=== PATIENT | female | born 1970 | race African-American/Black ===

== ENCOUNTER 2018-10-28 11:04 | Inpatient (IN) ==
[2018-10-28] MEDS ORDERED: ASPIRIN PO ONE (11:09)
[2018-10-28] MEDS ORDERED: LOPRESSOR IV ONE (11:41)
--- NOTE | 2018-10-28 11:41 | Diag Imaging Result Doc PS360 ---
EXAM: CHEST-2 VIEWS - 10/28/2018 HISTORY: cp TECHNIQUE: Chest two views COMPARISON: 05/17/2018 FINDINGS: Heart size appears mildly enlarged by decreased compared to prior. There is mild tortuosity of the thoracic aorta. There is a small left midlung granuloma from old granulomatous disease. Lungs otherwise appear clear. There is no pleural effusion or pneumothorax identified. IMPRESSION: Mild cardiomegaly. No other evidence of acute disease. Electronically signed by Willard Huang 10/28/2018 11:39 AM
[2018-10-28 11:46] LABS: BASO# 0.03 X1000 (0.0-0.2); BASO% 0.4 % (0.0-0.8); EOS# 0.05 X1000 (0.0-0.7); EOS% 0.7 % (0.0-10.0); HEMATOCRIT 39.4 % (37.0-47.0); HEMOGLOBIN 13.2 g/dL (12.0-16.0); IMM GRAN# 0.02 X1000 (0.0-0.04); IMM GRAN% 0.3 % (0.0-0.5); LYMPH# 2.12 X1000 (1.2-3.4); LYMPH% 28.9 % (20.5-51.1); MCH 30.6 PG (27-31); MCHC 33.5 g/dL (33-37); MCV 91.4 FL (81-99); MONO# 0.84 X1000 (0.11-0.59); MONO% 11.4 % (1.7-9.3); MPV 10.5 FL (7.4-10.4); NEUT# 4.28 X1000 (1.4-6.5); NEUT% 58.3 % (42.2-75.2); PLT 248 X1000 (130-400); RBC 4.31 XMIL (4.2-5.4); RDW 13.6 % (11.5-14.5); WBC 7.34 X1000 (4.8-10.8)
[2018-10-28 11:50] LABS: PROTIME 13.7 Seconds (11.0-16.0)
[2018-10-28 11:51] LABS: PTT 30.2 Seconds (22.3-41.8)
[2018-10-28] MEDS ORDERED: CATAPRES PO ONE (11:56)
[2018-10-28 12:00] LABS: CALCIUM 9.2 mg/dL (8.8-10.2); POTASSIUM 3.6 mmol/L (3.5-5.1); TOTAL BILIRUBIN 0.7 mg/dL (0.20-1.00); TOTAL PROTEIN 7.2 g/dL (6.3-8.3)
[2018-10-28 12:46] LABS: CK INDEX 1.8 (0.0-2.5); CK-MB 3.41 ng/mL (0.0-5.0)
--- NOTE | 2018-10-28 12:48 | EKG Report ---
Test Performed on : 10/28/2018 11:13:26 AM Test Reason : cp Blood Pressure : / mmHG Vent. Rate : 091 BPM Atrial Rate : 091 BPM P-R Int : 140 ms QRS Dur : 156 ms QT Int : 406 ms P-R-T Axes : 073 -22 091 degrees QTc Int : 499 ms Normal sinus rhythm. Possible Left atrial enlargement Left bundle branch block Abnormal ECG When compared with ECG of 18-MAY-2018 06:25, Vent. rate has increased BY 34 BPM Left bundle branch block is now present Unconfirmed Result
[2018-10-28] MEDS ORDERED: APRESOLINE IV ONE ×2 (13:07→16:00)
--- NOTE | 2018-10-28 14:12 | PROVIDER DOCUMENTATION ---
This chart was entered by Mounika Jose Scribe, acting as scribe for Trini Vang MD. HPI-Chest Pain - General Chief Complaint: Chest Pain Stated Complaint: CHEST PAIN / SOB Time Seen by Provider: 10/28/18 11:13 Source: patient Allergies/Adverse Reactions: Patient Allergies Allergy/AdvReac Type Severity Reaction Status Date / Time metoprolol Allergy Severe SWELLING Verified 05/17/18 15:58 amlodipine Allergy SWELLING Verified 05/17/18 15:58 lisinopril Allergy SWELLING Verified 05/17/18 15:58 peaches Allergy SWELLING Uncoded 05/20/18 09:03 Home Medications: Home Medication List Medication Instructions Recorded Confirmed Last Taken Type Furosemide [Lasix] 40 mg PO BID 01/14/18 05/17/18 05/17/18 15:58 History Albuterol Sulfate Inhaler 2 puff INH Q6H PRN PRN 05/17/18 05/17/18 Unknown History [Ventolin Hfa] Clonidine [Catapres] 0.2 mg PO TID 05/17/18 05/17/18 05/17/18 History Folic Acid 1 mg PO DAILY 05/17/18 05/17/18 05/17/18 History Spironolactone 25 mg PO DAILY 05/17/18 05/17/18 05/17/18 History Aspirin 325 mg PO DAILY tablet 05/20/18 Unknown Rx Methocarbamol [Robaxin-750] 750 mg PO Q8H #90 tablet 05/21/18 Unknown Rx - History of Present Illness-CP Nature of Presenting Problem: Patient is a 48 year old female who presents to the ED with left side chest pain. Patient states chest pain radiates to left arm and left mid back. Patient states symptoms started 1 hour ago. Patient denies shortness of breath. Patient' s blood pressure was 230/135. Location: reports: other (left side) Chest Pain Radiation: reports: arms (left), back (left side) Quality of Pain: reports: pressure, sharp Severity in ED: mild Onset/Duration: 1 hour ago Timing: still present Context/Activities at Onset: reports: light activity Modifying Factors: improves with: nothing Associated Symptoms: reports: back pain (left side) Similar Symptoms Previously?: No Recently Seen Here or By Another Healthcare Provider: No Review of Systems - Adult - REVIEW OF SYSTEMS - ADULT Constitutional: reports: no symptoms reported Eyes: reports: no symptoms reported Ears, Nose, Mouth & Throat: reports: no symptoms reported Cardiovascular: reports: chest pain. denies: heart murmur, irregular heart rate Respiratory: reports: no symptoms reported Gastrointestinal: reports: no symptoms reported Genitourinary: reports: no symptoms reported Musculoskeletal: reports: no symptoms reported Integumentary: reports: no symptoms reported Neurological: reports: no symptoms reported Psychiatric: reports: no symptoms reported Endocrine: reports: no symptoms reported Hematologic/Lymphatic: reports: no symptoms reported Allergic/Immunologic: reports: no symptoms reported All Other Systems: Reviewed and Negative Past History - Adult - PAST MEDICAL HISTORY-ADULT Review of Records: reports: Nursing Assessment Review, Medications Reviewed, Social history reviewed & non-contributory. Major Childhood Illnesses: reports: denies history Cardiovascular: reports: HTN, hyperlipidemia, other (Enlarged heart) Respiratory: reports: denies history Gastrointestinal: reports: GERD Obstetrical/Gynecological: reports: denies history Genitourinary: reports: denies history Musculoskeletal: reports: denies history Neurological: reports: denies history Psychiatric: reports: denies history Endocrine/Immune: reports: denies history Other Conditions: reports: denies history - PRIOR SURGERIES/PROCEDURES Surgical/Procedure History: reports: - PRIOR HOSPITALIZATIONS Prior Hospitalizations: reports: none - IMMUNIZATION STATUS Childhood Immunizations: See Nurse Assessment Flu Vaccine: See Nurse Assessment - FAMILY HISTORY Family History: reviewed, not pertinent - SOCIAL HISTORY Smoking: cigarettes (former) Substance Use: alcohol Alcohol Use Frequency: occasionally Living Situation: family Physical Exam-General - PHYSICAL EXAM-ADULT Initial Vital Signs Reviewed: Yes - CONSTITUTIONAL General Appearance: alert, no apparent distress - HEAD, EARS, NOSE, MOUTH & THROAT HENMT: normal ENT inspection - RESPIRATORY Respiratory: chest non-tender, lungs clear, normal breath sounds - CARDIOVASCULAR Cardiovascular: normal peripheral pulses, regular rate, rhythm, JVD - GASTROINTESTINAL (ABDOMEN) Abdominal Exam: normal bowel sounds, non tender, soft - MUSCULOSKELETAL Extremity: non-tender, normal inspection - SKIN Integumentary: normal color, normal turgor, warm/dry - NEUROLOGIC Neurologic: grossly normal - PSYCHIATRIC Psych/Mental Status: normal mood/affect, oriented x 3 Progress - PLAN OF CARE/RESULTS Progress/Plan/Lab Results: Vital Signs - 8 hr 10/28/18 11:10 10/28/18 12:06 10/28/18 13:15 Temperature 98.4 F Pulse Rate 90 78 71 Respiratory Rate 18 22 18 Blood Pressure 230/135 216/113 188/85 O2 Sat by Pulse Oximetry 98 99 98 Laboratory Results - last 24 hr 10/28/18 10/28/18 10/28/18 10:15 10:15 10:15 WBC 7.34 RBC 4.31 Hgb 13.2 Hct 39.4 MCV 91.4 MCH 30.6 MCHC 33.5 RDW Std Deviation 13.6 Plt Count 248 MPV 10.5 H Immature Gran % (Auto) 0.3 Neut % (Auto) 58.3 Lymph % (Auto) 28.9 Grant % (Auto) 11.4 H Eos % (Auto) 0.7 Baso % (Auto) 0.4 Immature Gran # (Auto) 0.02 Neut # (Auto) 4.28 Lymph # (Auto) 2.12 Grant # (Auto) 0.84 H Eos # (Auto) 0.05 Baso # (Auto) 0.03 PT INR PTT (Actin FS) Sodium 139 Potassium 3.6 Chloride 104 Carbon Dioxide 21 L Anion Gap 14 BUN 7 L Creatinine 1.0 H Estimated GFR/1.73 m2 59 BUN/Creatinine Ratio 7 Glucose 115 H Calculated Osmolality 276 Calcium 9.2 Total Bilirubin 0.70 AST 22 ALT 22 Alkaline Phosphatase 98 Creatine Kinase 186 H Creatine Kinase Index 1.8 CK-MB (CK-2) 3.41 Troponin T Obt-A-Gdjrmueyjnz Pept 2513 H Total Protein 7.2 Albumin 4.0 Globulin 3.0 Albumin/Globulin Ratio 1.0 10/28/18 10/28/18 10/28/18 10:15 10:15 13:30 WBC RBC Hgb Hct MCV MCH MCHC RDW Std Deviation Plt Count MPV Immature Gran % (Auto) Neut % (Auto) Lymph % (Auto) Grant % (Auto) Eos % (Auto) Baso % (Auto) Immature Gran # (Auto) Neut # (Auto) Lymph # (Auto) Grant # (Auto) Eos # (Auto) Baso # (Auto) PT 13.7 INR 1.00 PTT (Actin FS) 30.2 Sodium Potassium Chloride Carbon Dioxide Anion Gap BUN Creatinine Estimated GFR/1.73 m2 BUN/Creatinine Ratio Glucose Calculated Osmolality Calcium Total Bilirubin AST ALT Alkaline Phosphatase Creatine Kinase 154 Creatine Kinase Index CK-MB (CK-2) Troponin T < 0.010 Cmb-C-Waqsnqngaqv Pept Total Protein Albumin Globulin Albumin/Globulin Ratio 10/28/18 13:30 WBC RBC Hgb Hct MCV MCH MCHC RDW Std Deviation Plt Count MPV Immature Gran % (Auto) Neut % (Auto) Lymph % (Auto) Grant % (Auto) Eos % (Auto) Baso % (Auto) Immature Gran # (Auto) Neut # (Auto) Lymph # (Auto) Grant # (Auto) Eos # (Auto) Baso # (Auto) PT INR PTT (Actin FS) Sodium Potassium Chloride Carbon Dioxide Anion Gap BUN Creatinine Estimated GFR/1.73 m2 BUN/Creatinine Ratio Glucose Calculated Osmolality Calcium Total Bilirubin AST ALT Alkaline Phosphatase Creatine Kinase Creatine Kinase Index CK-MB (CK-2) Troponin T < 0.010 Eim-K-Xpshenxvxtw Pept Total Protein Albumin Globulin Albumin/Globulin Ratio Orders Category Date Time Status Cardiac Monitoring DIRECTED Care 10/28/18 11:09 Active Oxygen Therapy- ED Nursing DIRECTED Care 10/28/18 11:09 Active Saline Loc NOW Care 10/28/18 11:09 Active CHEST-2 VIEWS [RAD] Stat Exams 10/28/18 11:09 Completed CBC WITH ELECTRONIC DIFF [HEME] Stat Lab 10/28/18 10:15 Completed CK PROFILE [SP CHEM] Stat Lab 10/28/18 10:15 Completed CK PROFILE [SP CHEM] Stat Lab 10/28/18 13:30 Completed COMPREHENSIVE METABOLIC PANEL [CHEM] Stat Lab 10/28/18 10:15 Completed PRO B-NATRIURETIC PEPTIDE Stat Lab 10/28/18 10:15 Completed PROTIME WITH INR [COAG] Stat Lab 10/28/18 10:15 Completed PTT [COAG] Stat Lab 10/28/18 10:15 Completed TROPONIN T Stat Lab 10/28/18 10:15 Completed TROPONIN T Stat Lab 10/28/18 13:30 Completed Aspirin Med 10/28/18 11:09 Discontinued 325 mg PO NOW ONE Clonidine [Catapres] Med 10/28/18 11:56 Discontinued 0.2 mg PO NOW ONE Hydralazine [Apresoline] Med 10/28/18 13:07 Discontinued 10 mg IV NOW ONE Metoprolol [Lopressor] Med 10/28/18 11:41 Discontinued 5 mg IV NOW ONE CP/SOB/Palp >45 yrs of Age Stat Oth 10/28/18 11:09 Ordered EKG [EKG] Stat Ther 10/28/18 11:09 Draft EKG [EKG] Stat Ther 10/28/18 13:25 Ordered Patient's heart score is 4. Result Diagrams: 10/28/18 10:15 10/28/18 10:15 - EKG 1 Time of EKG reading by physician:: 11:13 EKG Read and Signed by:: Trini Vang EKG Interpretation (*Must complete 3 of following elements*): Abnormal Rate: 91 Rhythm: normal sinus rhythm Comments: possible left atrial enlargement; LBBB - XRAY 1 XRAY Study: Chest Impression: See EMR Report ( EXAM: CHEST-2 VIEWS - 10/28/2018 HISTORY: cp TECHNIQUE: Chest two views COMPARISON: 05/17/2018 FINDINGS: Heart size appears mildly enlarged by decreased compared to prior. There is mild tortuosity of the thoracic aorta. There is a small left midlung granuloma from old granulomatous disease. Lungs otherwise appear clear. There is no pleural effusion or pneumothorax identified. IMPRESSION: Mild cardiomegaly. No other evidence of acute disease. Electronically signed by Willard Huang 2018 11:39 AM 10/28/18 1139 Interpreting Physician: Willard Huang MD Dictated Date/Time: 10/28/18 1135 cc: Trini Vang MD;) - CONSULTS/PCP/HOSPITALIST Notification #1 *Consult/PCP/Hospitalist*: Dr. Harkins Time Discussed: 13:05 Reason/Comments: Dr. Vang consulted with Dr. Harkins about patient. Consult Disposition: other (Dr. Harkins states patient is a Dr. Solis patient.) #2 Consult: Dr. Solis Time Discussed: 13:12 Reason/Comments: Dr. Vang consulted with Dr. Solis about patient. Consult Disposition: other (Dr. Solis stated consult with Dr. New) Departure - Departure Date of Disposition Decision: 10/28/18 Time of Disposition Decision: 13:05 DIAGNOSIS: Chest pain Disposition: ADMITTED INPATIENT 09 Certified Medical Emergency: Emergent Condition: Stable Referrals and Follow-Ups: Shady Solis MD [Primary Care Provider] - - Critical Care Note This patient required my direct & personal management of CC.: Yes Total Time (mins): 33 Critical Care Statement: This patient required my direct personal management to treat or rule out processes, the absence of which, could potentiallly result in sudden, clinically significant life or limb threatening deterioration. Attestation - Physician/ SABRA Attestation The physician spent face to face time with patient:: Yes Advanced Practice Provider documentation review:: Supervising physician onsite and consulted in the evaluation and care of this patient. The physician did have a face to face encounter with the patient. This chart was documented by the indicated scribe, (Mounika Jose Scribe) and accurately reflects the services I performed and decisions made by me, Trini Vang MD, as attested by the provider's signature.
[2018-10-28] MEDS ORDERED: ZANTAC PO ONE (14:18)
[2018-10-28] MEDS ORDERED: ZYRTEC PO ONE (14:18)
[2018-10-28] MEDS ORDERED: DUONEB (A & A) INH PRN (15:00)
[2018-10-28] MEDS ORDERED: PULMICORT INH ONE (15:24)
[2018-10-28] MEDS ORDERED: SOLU-CORTEF IV ONE (15:35)
[2018-10-28] MEDS: DUONEB (A & A) INH SCH ×3 (15:41→23:26)
[2018-10-28] MEDS ORDERED: STERILE WATER INJ. INJ ONE (15:45)
[2018-10-28] MEDS: LOVENOX SUBQ SCH (16:11)
[2018-10-28] MEDS: NS 1,000 ML IV SCH (16:11)
[2018-10-28] MEDS: SOLU-MEDROL IV SCH (18:42)
[2018-10-28] MEDS: ZANTAC PO SCH (21:36)
[2018-10-28] MEDS: TYLENOL PO PRN (21:36)
--- NOTE | 2018-10-28 23:22 | HISTORY AND PHYSICAL ---
CHIEF COMPLAINT: Sharp left-sided chest pain, with swelling to her right eye and right cheek, along with hoarseness. HISTORY OF PRESENT ILLNESS: This is a 48-year-old female with a history of hypertension, bronchial asthma, anemia, who presents to the emergency room complaining of chest pain. This started about 2 hours prior to arrival. She stated that this is a left-sided chest pain. It feels like a stabbing burning-type pain. It does radiate straight through to her back, into her left arm, as well as swelling to her right eye and cheek, and tearing from her right eye. In the hour or two prior to coming to the emergency room, she stated that the tearing to this eye increased, as well as the swelling, but she has had no change in vision. She does state she has had orthopnea for a year or 2. She has been unable to lie flat. This is her normal, but during the day today, she has had increasing shortness of breath. This continues as her normal. She does report that shortly after this chest pain started, that she did have increasing shortness of breath at rest. She has denied any fevers, chills, any prior episodes, any difficulty swallowing. Of note, her blood pressure was 230/135 in the emergency room. PAST MEDICAL HISTORY: Hypertension, hypertensive cardiovascular disease with LVH and chronic diastolic failure, bronchial asthma. PAST SURGICAL HISTORY: . SOCIAL HISTORY: She smokes about half pack a day. She drinks socially. She denies illicit drug use. ALLERGIES: Lisinopril, amlodipine, metoprolol, and peaches. All cause swelling. HOME MEDICATIONS: A list will be obtained. We will call her pharmacy to verify , and then restart as appropriate. Home medications per [facility]: 1. Chlorthalidone 25 mg p.o. daily. 2. Clonidine 0.2 mg 3 times a day. 3. Lasix 40 mg daily. 4. Spironolactone 50 mg daily. REVIEW OF SYSTEMS: Discussed with patient, with pertinent positives stated in the HPI. She denies any syncope or dizziness, palpitations, any fevers, chills, night sweats , recent weight loss or weight gain, productive cough, any nausea, vomiting, diarrhea, constipation, black or bloody vomitus or stools, hematuria, dysuria, frequency, urgency. PHYSICAL EXAMINATION: GENERAL: This is a 48-year-old female, who is sitting up in the stretcher in the ICU, in no distress. VITAL SIGNS: Blood pressure is 179/90, with a heart rate of 70, respirations are 20, temperature is 97.5 oral, with room air saturations 100%. EYES: Pupils are equal, round, react to light. EOMs are intact. Sclerae are anicteric. HEENT: Head is normocephalic, atraumatic. Mucous membranes are dry. NECK: Supple, with trachea midline. CARDIOVASCULAR: Regular rate and rhythm. S1 and S2 appreciated. No appreciable murmur or gallop. She has some trace pretibial edema, with peripheral pulses palpable x4 extremities. PULMONARY: Breath sounds which are diminished, with expiratory wheezes scattered throughout. Some rhonchi on the right that do not clear to cough. Chest rises and falls symmetrically with respiration. Chest wall is nontender to palpation. GASTROINTESTINAL: Abdomen is soft, nontender, nondistended, with bowel sounds in all 4 quadrants. GENITOURINARY: She has no CVA or suprapubic tenderness. NEUROLOGIC: She is alert and oriented x3. SKIN: Warm and dry. LABS: WBC is 7.3, with hemoglobin 13.2, hematocrit 39.4, platelets of 248,000. Sodium is 139, potassium 3.6, BUN 7, creatinine 1, with a glucose of 115. Troponins are negative on multiple occasions. ProBNP is 2513. Chest x-ray reveals mild cardiomegaly, with no evidence of acute disease. EKG reveals sinus rhythm, at a rate of 91, with a left bundle branch block. ASSESSMENT: 1. Allergic reaction. 2. Hypertensive urgency. 3. Chest pain, in a patient with a normal myocardial perfusion scan in May 2018, and a negative coronary CTA, with a coronary calcium score of 0. 4. Bronchial asthma. 5. Anemia. PLAN: The patient was admitted to the medical/surgical floor. Shortly after arriving there, I then rechecked on her, and she had increased swelling to her eye, as well as her lips and the right side of her face. Her voice was much more hoarse. Therefore, she was moved to the ICU for close monitoring. She will be placed on telemetry. We will give supplemental oxygen as needed, DuoNebs q.4 hours with q.2 hours p.r.n. We will give a dose of Solu-Cortef 100 mg IV, and we will time Solu-Medrol from this. We will obtain her records from Dr. Joesph Triplett' s office. We will have strict I O, with daily weights. Place her on a healthy heart diet. There is a discrepancy on her home medications, and the medications that Dr. Triplett had prescribed for her, so we will give hydralazine 10 mg IV now, and q.4 hours p.r.n. systolic blood pressure greater than 190, or diastolic greater than 100. Will consult cardiology. She was given a now dose of Zantac and Zyrtec in the emergency room. We will continue this. CBC, CMP, and magnesium in the morning. Repeat a troponin and CK profile at 8:00 tonight. Further treatments pending hospital course. Dictated by YEIMI Walker for Elgin Dowell MD This chart was documented by, YEIMI Walker and accurately reflects the services performed, treatment plan and medical decisions as attested by the providers signature Elgin Dowell MD. Patient has developed an allergic reaction and hypertensive urgency. Will place patient on Cardene drip and send her to ICU. Will monitor patient closely. cc: YEMII Walker MD [facility] HOSPITALMatilda
[2018-10-29] MEDS: DUONEB (A & A) INH SCH ×4 (02:43→16:21)
[2018-10-29] MEDS: SOLU-MEDROL IV SCH (03:04)
[2018-10-29 06:20] LABS: RBC 4.1 XMIL (4.2-5.4); WBC 6.65 X1000 (4.8-10.8)
[2018-10-29] MEDS: PRILOSEC PO SCH (06:20)
[2018-10-29 06:21] LABS: HEMATOCRIT 37.2 % (37.0-47.0); HEMOGLOBIN 12.1 g/dL (12.0-16.0); MCH 29.5 PG (27-31); MCHC 32.5 g/dL (33-37); MCV 90.7 FL (81-99); MPV 10.8 FL (7.4-10.4); RDW 13.4 % (11.5-14.5)
[2018-10-29 06:31] LABS: AGAP 14; ALBUMIN 3.3 g/dL (3.5-5.0); ALKALINE PHOSPHATASE 88 U/L (32-104); BUN 9 mg/dL (8-22); CALCIUM 9.1 mg/dL (8.8-10.2); CHLORIDE 106 mmol/L (98-107); COSMO 279; CREATININE 0.9 mg/dL (0.5-0.9); ESTIMATED GFR > 60; GLUCOSE 157 mg/dL (70-104); GOT 16 U/L (10-30); GPT 17 U/L (10-36); MAGNESIUM 1.8 mg/dL (1.5-2.7); POTASSIUM 3.8 mmol/L (3.5-5.1); SODIUM 139 mmol/L (136-145); TCO2 19 mmol/L (25-35); TOTAL PROTEIN 6.4 g/dL (6.3-8.3)
[2018-10-29] MEDS: ZANTAC PO SCH ×2 (08:33→20:04)
[2018-10-29] MEDS: ZYRTEC PO SCH (08:33)
--- NOTE | 2018-10-29 10:50 | PROGRESS NOTE ---
DATE: 10/29/2018 SUBJECTIVE: The patient reports chest discomfort is almost gone. He denies any difficulty in breathing. The swelling in the right eye and right cheek is definitely much better with no hoarseness noted. OBJECTIVE: Vital Signs: Temperature 98.2, heart rate 84, respiratory rate 20, blood pressure 163/97, O2 saturation 99% on room air. On general examination, this is a 48-year-old - [place] female lying in bed in no acute distress. Cardiovascular: S1, S2 heard. No murmurs, gallops, or rubs. Regular rate and rhythm. Respiratory: Mild expiratory wheezing noted in both pulmonary bases. Patient is not using any accessory muscles or having work of breathing. Abdomen is soft. Nontender to palpation. Bowel sounds present. No organomegaly. Extremities: No clubbing, cyanosis, or edema. Peripheral pulses present in both legs. Neurological: Patient is alert and oriented x3. Moves 4 extremities. LABORATORY DATA: CBC is normal. BMP is normal as well with glucose 157. We have checked troponins 3 times and those have been negative completely. ASSESSMENT AND PLAN: 1. Hypertensive urgency. Blood pressure is definitely much better controlled. The patient currently is on [id number] mg IV q.4 hours but p.r.n. There has been an inconsistency between medication the patient has been receiving versus medication that she was prescribed at her primary care doctor's office. At this time, I think that the blood pressure is okay. We will consult Cardiology to readjust the dose of those medications. Currently, as we mentioned before, she is only on p.r.n. medications. 2. Allergic reaction. We do not know exactly what happened yesterday, but she shows signs of moderate allergic reaction with swelling in both lips and also hoarseness. The patient has been given Solu-Medrol in the ER and also hydrocortisone. This condition is almost resolved. We will continue to monitor this patient. 3. Bronchial asthma. Patient has some wheezing in the physical examination. So, at this point, we will provide breathing treatment, as needed only. 4. Anemia of chronic disease. Hemoglobin is stable. We will continue to monitor this patient closely. DISPOSITION: I think at this point the patient's blood pressure is much better controlled. We will continue with current medications, and we will keep this patient one more day here in the unit to make sure blood pressure, does not go up again. cc: Elgin Dowell MD
[2018-10-29] MEDS: TYLENOL PO PRN (11:05)
[2018-10-29] MEDS: ALDACTONE PO SCH (11:05)
[2018-10-29] MEDS: PREDNISONE PO SCH ×2 (11:05→20:05)
[2018-10-29] MEDS: NS 1,000 ML IV SCH (11:06)
[2018-10-29] MEDS ORDERED: BLISTEX MEDICATED BERRY LIP BALM TOP PRN (11:14)
[2018-10-29] MEDS: APRESOLINE PO SCH ×2 (12:24→20:04)
[2018-10-29] MEDS: LOVENOX SUBQ SCH (15:45)
[2018-10-29] MEDS: APRESOLINE IV PRN ×2 (16:18→19:41)
[2018-10-29] MEDS ORDERED: XOPENEX NEB INH PRN (17:26)
[2018-10-29] MEDS ORDERED: DUONEB (A & A) INH PRN (17:27)
[2018-10-29] MEDS: LABETALOL IV PRN (17:48)
[2018-10-30] MEDS: LABETALOL IV PRN ×3 (00:45→14:12)
[2018-10-30] MEDS: APRESOLINE PO SCH (05:12)
[2018-10-30] MEDS: PRILOSEC PO SCH (06:38)
[2018-10-30] MEDS ORDERED: DIOVAN PO SCH ×2 (09:00→21:00)
[2018-10-30] MEDS ORDERED: APRESOLINE PO SCH (09:00)
[2018-10-30] MEDS: PREDNISONE PO SCH ×2 (09:37→21:34)
[2018-10-30] MEDS: ALDACTONE PO SCH (09:37)
[2018-10-30] MEDS: ZYRTEC PO SCH (09:37)
[2018-10-30] MEDS: ZANTAC PO SCH ×2 (09:37→21:34)
[2018-10-30] MEDS: NS 1,000 ML IV SCH (09:38)
--- NOTE | 2018-10-30 17:00 | PROGRESS NOTE ---
DATE: 10/30/2018 SUBJECTIVE: Patient reports blood pressure has been still high with chest discomfort on and off. I think it is related to elevation of blood pressure. OBJECTIVE: Vital Signs: Temperature 97.9 degrees, heart rate 84, respiratory rate 18, blood pressure 119/96. O2 saturation 100% on room air. General: This is a 48-year- old female lying in bed in no acute distress. Cardiovascular: S1, S2 heard. No murmurs, gallops, or rubs. Regular rate and rhythm. Respiratory: There is still some mild respiratory wheezing noted in both pulmonary bases. Definitely better in comparing with yesterday. Patient is not using any accessory muscles or having work of breathing. Abdomen: Soft. Nontender to palpation. Bowel sounds present. No organomegaly. Extremities: No clubbing, cyanosis, or edema. Peripheral pulses present in both legs. Neurological: Patient is alert and oriented x3. Moves all 4 extremities. LABORATORY DATA: There are no labs from today, but CBC and BMP from yesterday have been completely normal. ASSESSMENT AND PLAN: 1. Hypertensive urgency. Blood pressure continues to be high. The patient is on Labetalol IV q.4 hours p.r.n. I will add hydralazine too but p.r.n. We know that this patient is allergic to ANDERSON inhibitors so, at this time, I prefer to start this patient on Micardis and also Coreg considering that she has been receiving beta-blockers as well. We will see how this patient does. Cardiology has been consulted. Will follow recommendations. 2. Allergic reaction completely resolved. We do not know exactly what medication or food she has taken, but this condition is completely gone. 3. Bronchial asthma. Patient is receiving breathing treatment because she had some wheezing on physical examination. We will continue with the same management. 4. Anemia of chronic disease. Hemoglobin is stable. We will continue to monitor this patient closely. 5. Disposition: At this time. Blood pressure is still not well controlled. If the patient's blood pressure continues to get high, we may need to send her back to the intensive care unit. At this point, we will monitor this patient closely. cc: MD LM Palencia
[2018-10-30] MEDS: LOVENOX SUBQ SCH (18:04)
[2018-10-30] MEDS: MICARDIS PO SCH (21:34)
[2018-10-30] MEDS: COREG PO SCH (21:34)
[2018-10-30] MEDS: APRESOLINE IV PRN (21:34)
--- NOTE | 2018-10-31 01:27 | CARDIOLOGY CONSULTATION ---
DATE: 10/30/2018 CHIEF COMPLAINT ON PRESENTATION: Hypertension, chest pain. HISTORY OF PRESENT ILLNESS: Ms. Rush is a 48-year-old black female with a history of hypertension and asthma. She presented for evaluation of left-sided chest pain that was nonexertional in nature. She reports her systolic blood pressures were in the 190s over 200. She denies any overt orthopnea. She reports compliance with her medications. PAST MEDICAL HISTORY: Significant for: 1. Hypertension. 2. Severe left ventricular hypertrophy. 3. Asthma. 4. Diastolic heart failure. SOCIAL HISTORY: She smokes about 1/2 pack a day. Drinks socially. No illicit drugs. ALLERGIES: She reports a history of angioedema with lisinopril, swelling with amlodipine. She thought she had an allergy to beta-blockers, but she has been receiving labetalol here without any difficulties. REVIEW OF SYSTEMS: A 10-system review of systems is negative except for those things mentioned in HPI. PHYSICAL EXAMINATION: Vital signs: Blood pressure today is 219/96. She is afebrile. Heart rate 84. General: She is in no acute distress. HEENT: Oropharynx is moist. Normal dentition. Eye examination shows pink conjunctivae, white sclerae. Neck: No obvious thyromegaly or thyroid tenderness. Cardiovascular: She sounds to be in a regular rate and rhythm. I do not hear any obvious murmurs. She has no S3. She has no lower extremity edema. Chest: Clear bilaterally. She has no increased work of breathing. Abdomen: Soft, nontender. She has no obvious organomegaly. Skin: Warm and dry throughout, without any rashes. Neurological: Moving all extremities well. PERTINENT DATA: She had an EKG on the with a rate of 91 beats per minute. She has a left bundle branch block. She had a coronary CTA performed in June 2018, showing a normal ejection fraction, calcium score of 0, essentially normal coronary arteries. She had a chest x- ray performed this hospitalization, showing mild cardiomegaly, no evidence of any other acute disease. Her white count is 6.6, hematocrit 37, platelet count 225,000. Sodium is 139, potassium 3.8, BUN is 9, creatinine 0.9. Cardiac enzymes negative. Her proBNP is 2513. Albumin of 3.3. ASSESSMENT: The patient is a 48-year-old black female with a history of severe hypertension. PLAN: She has had significant medication titrations today, including the addition of telmisartan and carvedilol. I have discontinued her spironolactone and placed her on chlorthalidone which could be increased up to 50 mg in the future. I would continue titrating the carvedilol, chlorthalidone, and Micardis and potentially adding in hydralazine in the future. I will have a dietitian see the patient tomorrow regarding her sodium intake. We will check a TSH as well. The patient had an echocardiogram in May, demonstrating severe left ventricular hypertrophy with a normal ejection fraction. cc: Joesph Triplett MD
[2018-10-31] MEDS: PRILOSEC PO SCH (06:24)
[2018-10-31 06:56] LABS: BASO# 0.01 X1000 (0.0-0.2); BASO% 0.1 % (0.0-0.8); HEMATOCRIT 36.6 % (37.0-47.0); HEMOGLOBIN 11.6 g/dL (12.0-16.0); IMM GRAN# 0.03 X1000 (0.0-0.04); IMM GRAN% 0.3 % (0.0-0.5); LYMPH# 1.57 X1000 (1.2-3.4); LYMPH% 13.7 % (20.5-51.1); MCH 29.3 PG (27-31); MCHC 31.7 g/dL (33-37); MCV 92.4 FL (81-99); MONO# 0.76 X1000 (0.11-0.59); MONO% 6.7 % (1.7-9.3); MPV 10.7 FL (7.4-10.4); NEUT# 9.05 X1000 (1.4-6.5); NEUT% 79.2 % (42.2-75.2); PLT 248 X1000 (130-400); RBC 3.96 XMIL (4.2-5.4); RDW 14.3 % (11.5-14.5); WBC 11.42 X1000 (4.8-10.8)
[2018-10-31 07:18] LABS: AGAP 9; BUN 10 mg/dL (8-22); CALCIUM 8.4 mg/dL (8.8-10.2); CHLORIDE 112 mmol/L (98-107); COSMO 283; CREATININE 0.9 mg/dL (0.5-0.9); ESTIMATED GFR > 60; GLUCOSE 106 mg/dL (70-104); POTASSIUM 3.7 mmol/L (3.5-5.1); SODIUM 142 mmol/L (136-145); TCO2 22 mmol/L (25-35)
[2018-10-31] MEDS: APRESOLINE IV PRN ×3 (07:33→22:38)
[2018-10-31] MEDS: ZYRTEC PO SCH (08:51)
[2018-10-31] MEDS: NS 1,000 ML IV SCH (08:51)
[2018-10-31] MEDS: COREG PO SCH ×2 (08:51→21:15)
[2018-10-31] MEDS: ZANTAC PO SCH ×2 (08:51→21:16)
[2018-10-31] MEDS: PREDNISONE PO SCH ×2 (08:52→21:16)
[2018-10-31] MEDS: HYGROTON PO SCH (08:52)
[2018-10-31] MEDS: MICARDIS PO SCH ×2 (08:52→21:15)
[2018-10-31] MEDS: TYLENOL PO PRN (09:03)
[2018-10-31] MEDS ORDERED: ALDACTONE PO SCH (11:45)
--- NOTE | 2018-10-31 12:05 | PROGRESS NOTE ---
DATE: 10/31/2018 SUBJECTIVE: The patient denies having any acute complaints this morning. She states that her blood pressure has been uncontrolled, however. OBJECTIVE: Vital Signs: Temperature 97.9 degrees, pulse 70 per minute, respiratory rate 20 per minute, blood pressure 198/80, pulse oximetry 100% on room air. General: The patient is alert and oriented x3. She does not appear to be in any acute distress. Cardiovascular System: First and second heart sounds are audible without any murmurs or gallops. Respiratory System: No respiratory distress noted. Bilateral lung air entry is good without any rales or rhonchi. Gastrointestinal: Abdomen is soft and nondistended. It is nontender on palpation. Normal bowel sounds are present. DIAGNOSTIC DATA: CBC shows WBC count of 11.42, hemoglobin 11.6, and hematocrit 36.6. Platelet count normal at 248,000. Basic metabolic panel this morning is nondiagnostic. TSH was found to be suppressed at 0.07. IMPRESSION: This is a 48-year-old female who has resistant hypertension and also has a history of asthma of chronic disease along with anemia of chronic kidney disease. Furthermore, she has suppressed TSH levels. PLAN: She will continue with chlorthalidone 25 mg daily along with telmisartan 40 mg orally twice daily. Her carvedilol has been increased to 25 mg orally twice daily and I am going to start her on spironolactone 25 mg daily as well. She has suppressed TSH and, therefore, I am going to obtain free T3 and free T4 along with thyrotropin receptor antibodies today. She has anemia of chronic disease and I am going to monitor her H and H for now. Further recommendations will be given as per outcome of these suggestions. cc: Blayne Pal MD
[2018-10-31] MEDS: LOVENOX SUBQ SCH (14:07)
[2018-11-01 06:06] LABS: HEMATOCRIT 38.6 % (37.0-47.0); HEMOGLOBIN 12.3 g/dL (12.0-16.0); IMM GRAN# 0.02 X1000 (0.0-0.04); IMM GRAN% 0.2 % (0.0-0.5); LYMPH# 2.07 X1000 (1.2-3.4); LYMPH% 22.8 % (20.5-51.1); MCH 29.5 PG (27-31); MCHC 31.9 g/dL (33-37); MCV 92.6 FL (81-99); MONO# 0.99 X1000 (0.11-0.59); MONO% 10.9 % (1.7-9.3); MPV 10.8 FL (7.4-10.4); NEUT# 5.98 X1000 (1.4-6.5); NEUT% 66.1 % (42.2-75.2); PLT 251 X1000 (130-400); RBC 4.17 XMIL (4.2-5.4); RDW 14.6 % (11.5-14.5); WBC 9.06 X1000 (4.8-10.8)
[2018-11-01] MEDS: PRILOSEC PO SCH (06:16)
[2018-11-01 06:22] LABS: AGAP 10; BUN 15 mg/dL (8-22); CALCIUM 8.7 mg/dL (8.8-10.2); CHLORIDE 106 mmol/L (98-107); COSMO 275; CREATININE 0.9 mg/dL (0.5-0.9); ESTIMATED GFR > 60; GLUCOSE 105 mg/dL (70-104); POTASSIUM 3.7 mmol/L (3.5-5.1); SODIUM 137 mmol/L (136-145); TCO2 22 mmol/L (25-35)
[2018-11-01] MEDS: ALDACTONE PO SCH (08:41)
[2018-11-01] MEDS: ZANTAC PO SCH ×2 (08:41→21:31)
[2018-11-01] MEDS: COREG PO SCH ×2 (08:42→21:30)
[2018-11-01] MEDS: MICARDIS PO SCH ×2 (08:42→21:30)
[2018-11-01] MEDS: ZYRTEC PO SCH (08:42)
[2018-11-01] MEDS: HYGROTON PO SCH (08:42)
--- NOTE | 2018-11-01 11:46 | PROGRESS NOTE ---
DATE: 11/01/2018 SUBJECTIVE: The patient denies having any acute complaints this morning. OBJECTIVE: Vital Signs: Temperature 98.3, pulse 61 per minute, respiratory rate 20 per minute, blood pressure 214/90. Her blood pressure was 157/82 last night, however. Pulse ox is 99 percent on room air. General: Patient is alert and oriented x3. She does not appear to be in any acute distress. Cardiovascular System: First and second heart sounds are audible without any murmurs, rubs, or gallops. Respiratory System: No respiratory distress noted. Bilateral lung air entry is good without any rales or rhonchi. Gastrointestinal: Abdomen is soft and nondistended. Normal bowel sounds are present. DIAGNOSTIC DATA: CBC and BMP done this morning are both nondiagnostic. IMPRESSION: 1. Resistant hypertension. 2. Asthma. 3. Anemia that has now stabilized and no longer there. PLAN: The patient has been having resistant hypertension and, despite several medications, her blood pressure remains uncontrolled. She is currently taking telmisartan 40 mg twice daily along with chlorthalidone 25 mg daily, carvedilol 25 mg twice daily and spironolactone 25 mg daily. Her spironolactone will be increased to 50 mg daily, and I am going to start her on hydralazine tomorrow if her blood pressure remains elevated. She will be kept on omeprazole daily for GI prophylaxis, and we will continue giving her enoxaparin 40 mg subcutaneously q 24 hours for VTE prophylaxis. Further recommendations will be given as per her hospital course. cc: Blayne Pal MD MTDD
[2018-11-01] MEDS: LOVENOX SUBQ SCH (17:04)
[2018-11-01] MEDS: APRESOLINE IV PRN (21:31)
[2018-11-02] MEDS ORDERED: ZOFRAN IV PRN
[2018-11-02] MEDS: PRILOSEC PO SCH (06:45)
[2018-11-02 07:02] LABS: BASO# 0.01 X1000 (0.0-0.2); BASO% 0.1 % (0.0-0.8); EOS# 0.11 X1000 (0.0-0.7); EOS% 1.4 % (0.0-10.0); HEMATOCRIT 41.5 % (37.0-47.0); HEMOGLOBIN 13.4 g/dL (12.0-16.0); IMM GRAN# 0.03 X1000 (0.0-0.04); IMM GRAN% 0.4 % (0.0-0.5); LYMPH# 3.29 X1000 (1.2-3.4); LYMPH% 41.5 % (20.5-51.1); MCH 29.7 PG (27-31); MCHC 32.3 g/dL (33-37); MONO% 13.9 % (1.7-9.3); MPV 10.6 FL (7.4-10.4); NEUT# 3.38 X1000 (1.4-6.5); NEUT% 42.7 % (42.2-75.2); PLT 235 X1000 (130-400); RBC 4.51 XMIL (4.2-5.4); RDW 14.2 % (11.5-14.5); WBC 7.92 X1000 (4.8-10.8)
[2018-11-02 07:37] LABS: CALCIUM 8.6 mg/dL (8.8-10.2); POTASSIUM 3.3 mmol/L (3.5-5.1)
[2018-11-02] MEDS: ALDACTONE PO SCH (09:03)
[2018-11-02] MEDS: COREG PO SCH ×2 (09:03→17:50)
[2018-11-02] MEDS: ZYRTEC PO SCH (09:03)
[2018-11-02] MEDS: ZANTAC PO SCH ×2 (09:03→17:50)
[2018-11-02] MEDS: MICARDIS PO SCH ×2 (09:04→17:51)
[2018-11-02] MEDS: HYGROTON PO SCH (09:04)
[2018-11-02] MEDS: APRESOLINE PO SCH ×2 (15:25→17:51)
[2018-11-02 16:57] VITALS: BP 146/64
[2018-11-02] MEDS: LOVENOX SUBQ SCH (17:52)
--- NOTE | 2018-11-02 22:31 | DISCHARGE SUMMARY ---
ADMISSION DATE: 10/28/2018 DISCHARGE DATE: 11/02/2018 DISCHARGE DIAGNOSES: 1. Resistant hypertension. 2. Asthma. HOSPITAL COURSE: This is a 48-year-old female who has a history of hypertension and bronchial asthma, who presented to the emergency department complaining of chest pain. She was noted to have a significantly elevated blood pressure of 230/135. She was therefore admitted to the hospital for further care. She was given different medications, and then her blood pressure medications were titrated upwards. She had negative cardiac enzymes, and acute myocardial ischemia was ruled out. Her blood pressure has now improved, and just a while ago, her blood pressure was recorded as 145/77. She feels well, and denies having any complaints today. Since her blood pressure has improved, and her overall condition has improved, I am going to let her go home today. DISCHARGE MEDICATIONS: 1. Carvedilol 25 mg orally twice daily. 2. Chlorthalidone 25 mg orally once daily in the morning. 3. Hydralazine 25 mg orally 3 times a day. 4. Telmisartan 80 mg orally once daily. 5. Spironolactone 50 mg orally once daily in the morning. 6. Ranitidine 150 mg orally twice daily. 7. Albuterol inhaler as needed as directed. 8. Cetirizine 10 mg orally once daily. FOLLOWUP: She will follow up with her PCP, Dr. Solis, in approximately 1 week, and with Dr. Triplett at [facility], in approximately 3 to 4 weeks. cc: Blayne Pal MD
== END 2018-11-02 18:14 | disposition home or self-care (01) | DRG 305 ==
LOC: P.ED 11:04 → P.MEDSURG 11:05 → SUATTDRO 11:05 → P.ICU 15:33 → P.MEDSURG 10-30 06:44
PROVIDERS: ATTEND Internal Medicine
CPT/HCPCS: 71020; 71046; 80048; 80053; 82550; 82553; 83519; 83520; 83735; 83880; 84439; 84443; 84481; 84484; 85025; 85027; 85610; 85730; 93005; 94640; 94761; 94799; 96374; 99285; A9270; J0360; J1650; J1720; J2405; J2920; J7030; J7506; J7512

== ENCOUNTER 2019-04-20 13:02 | Observation (INO) ==
[2019-04-20] MEDS ORDERED: ASPIRIN PO ONE (13:11)
[2019-04-20] MEDS ORDERED: NITROGLYCERIN SL PRN ×2 (13:11→16:08)
--- NOTE | 2019-04-20 13:31 | Diag Imaging Result Doc PS360 ---
EXAM: CHEST-2 VIEWS 04/20/2019 HISTORY: chest pain TECHNIQUE: PA and lateral chest COMMENT: There is an apparent granuloma in the left lower lobe. There is no evidence of acute cardiac or pulmonary disease. Compared to 02/22/2019 there has been no significant change. IMPRESSION: No evidence of acute disease. Electronically signed by Gurdeep Boyd 04/20/2019 1:28 PM
[2019-04-20 13:43] LABS: BASO# 0.02 X1000 (0.0-0.2); BASO% 0.3 % (0.0-0.8); EOS# 0.08 X1000 (0.0-0.7); EOS% 1.4 % (0.0-10.0); HEMOGLOBIN 13.9 g/dL (12.0-16.0); IMM GRAN# 0.01 X1000 (0.0-0.04); IMM GRAN% 0.2 % (0.0-0.5); LYMPH# 2.14 X1000 (1.2-3.4); LYMPH% 36.5 % (20.5-51.1); MCH 31.2 PG (27-31); MCHC 33.9 g/dL (33-37); MCV 92.1 FL (81-99); MONO# 0.57 X1000 (0.11-0.59); MONO% 9.7 % (1.7-9.3); MPV 10.6 FL (7.4-10.4); NEUT# 3.04 X1000 (1.4-6.5); NEUT% 51.9 % (42.2-75.2); PLT 224 X1000 (130-400); RBC 4.45 XMIL (4.2-5.4); RDW 13.1 % (11.5-14.5); WBC 5.86 X1000 (4.8-10.8)
[2019-04-20 13:59] LABS: ALBUMIN 4.2 g/dL (3.5-5.0); CALCIUM 9.1 mg/dL (8.8-10.2); CREATININE 1.2 mg/dL (0.5-0.9); POTASSIUM 3.8 mmol/L (3.5-5.1); TOTAL BILIRUBIN 0.9 mg/dL (0.20-1.00); TOTAL PROTEIN 7.1 g/dL (6.3-8.3)
[2019-04-20 14:09] LABS: INR 0.96; PROTIME 13.3 Seconds (11.0-16.0)
[2019-04-20 14:10] LABS: PTT 30.8 Seconds (22.3-41.8)
--- NOTE | 2019-04-20 15:10 | EKG Report ---
Test Performed on : 04/20/2019 1:18:42 PM Test Reason : chest pain Blood Pressure : / mmHG Vent. Rate : 064 BPM Atrial Rate : 064 BPM P-R Int : 140 ms QRS Dur : 122 ms QT Int : 402 ms P-R-T Axes : 033 063 000 degrees QTc Int : 414 ms Normal sinus rhythm. Ventricular pre-excitation, WPW pattern type B Abnormal ECG When compared with ECG of 22-FEB-2019 07:27, (Unconfirmed) [id number] is now present Unconfirmed Result
[2019-04-20] MEDS ORDERED: TYLENOL PO PRN (16:08)
[2019-04-20] MEDS ORDERED: ZOFRAN IV PRN (16:08)
[2019-04-20 17:06] LABS: CALCIUM 9.1 mg/dL (8.8-10.2); CREATININE 1.1 mg/dL (0.5-0.9); POTASSIUM 3.9 mmol/L (3.5-5.1)
[2019-04-20] MEDS ORDERED: APRESOLINE IV PRN (17:16)
[2019-04-20] MEDS ORDERED: VENTOLIN HFA INH PRN (17:17)
[2019-04-20] MEDS: APRESOLINE PO SCH (17:57)
--- NOTE | 2019-04-20 18:13 | HISTORY AND PHYSICAL ---
PRIMARY CARE PHYSICIAN: Dr. Shady Solis. CHIEF COMPLAINT: Chest pain. HISTORY OF PRESENTING ILLNESS: This is a 48-year-old female who presents to [facility] ER with complaints of chest pain that began around noon today, radiated to the left arm and left side of her neck and through to her back with some associated shortness of breath and nausea, vomiting. When she arrived to the emergency room her blood pressure was noted to be 201/98. States she has been taking her medications as prescribed. Her workup showed the first set of cardiac enzymes were negative. She did have a mild bump in her creatinine at 1.2 so she will be admitted for further evaluation and treatment. 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 PAST SURGICAL HISTORY: . FAMILY HISTORY: Reviewed and noncontributory. SOCIAL HISTORY: She currently lives with her son, quit smoking about 14 years ago, drinks alcohol socially and no illicit drugs. ALLERGIES: To amlodipine and lisinopril and peaches. HOME MEDICATIONS: A current list will need to be obtained, reconciled, reviewed and restarted as appropriate. Will place an order for nursing to update and confirm home medications. LABORATORY DATA: Showed a white blood cell count of 5.86, hemoglobin 13.9, hematocrit 41, platelets 224,000, PT and INR of 13.3 and 0.96. Sodium of 139, potassium 3.8, chloride 103, CO2 25, BUN 13 with a creatinine of 1.2, glucose 95, creatine kinase of 162, troponin less than 0.010, proBNP of 686. EKG with normal sinus rhythm at 64. Chest x-ray showed no evidence of acute disease. REVIEW OF SYSTEMS: She denied any fever, chills, blurred vision, dizziness. She was positive for chest pain that radiated down to her left arm, into her left side of her neck and back, shortness of breath, nausea, vomiting. Denied abdominal pain, constipation, diarrhea, burning or hurting with urination. PHYSICAL EXAMINATION: On arrival she had a temperature of 98.6 degrees, pulse 70, respirations 18, blood pressure 201/98, saturating 100% on room air, currently blood pressure is down to 176/100. GENERAL: This is a 48-year-old female who is lying in the bed and answers questions appropriately. HEENT: Normocephalic, atraumatic. Normal ENT inspection. Oropharynx and nares are clear. Pupils are equal, round and reactive to light, accommodation. Extraocular movements are intact. NECK: Normal inspection, normal range of motion. LUNGS: Clear to auscultation bilaterally with equal lung expansion and chest wall movement. HEART: With regular rate and rhythm. No murmurs, rubs or gallops. ABDOMEN: Soft, nontender, nondistended. Bowel sounds are present x4 quadrants. MUSCULOSKELETAL: She has 5/5 strength x4 extremities. NEUROLOGICAL: The cranial nerves 2-12 appear grossly intact. ASSESSMENT: 1. Chest pain. 2. Hypertension uncontrolled. 3. Acute kidney injury. OUR PLAN: She will be admitted to the medical unit, placed on telemetry, O2 per protocol, Zofran 4 mg IV q.4 hours p.r.n., going to check a lipid profile, serial cardiac enzymes, will consult Cardiology. We will update and confirm home medications as previously noted and further orders after seen by attending and by computer systems consultant. Dictated by YEIMI Gramajo for Jean Jacob MD cc: MD Amy Tafoya CRNP Gregory S. Cheatham, MD
[2019-04-20] MEDS ORDERED: BYSTOLIC PO ONE (20:02)
[2019-04-20] MEDS: ZANTAC PO SCH (20:38)
[2019-04-20] MEDS: LASIX PO SCH (20:38)
[2019-04-20] MEDS ORDERED: COREG PO SCH (21:00)
--- NOTE | 2019-04-20 21:03 | HISTORY AND PHYSICAL ---
HISTORY AND PHYSICAL ADDENDUM: Patient seen and examined by myself. Full note dictated and discussed with nurse practitioner. Patient presented to the hospital with chest pain, has a known history of congestive heart failure, but no previous history of NC. She had a stress test last year that was reported as negative. Notes that she was having some shortness of breath, nausea and vomiting with the pain. We will admit to the hospital to rule out NC and further orders as needed. cc: Jean Jacob MD
--- NOTE | 2019-04-20 22:09 | CONSULTATION ---
DATE OF CONSULTATION: 04/20/2019 IMPRESSION: 1. Extended episode of chest pressure in association with markedly elevated blood pressure. 2. Hypertensive cardiovascular disease with left ventricular hypertrophy. 3. Severe hypertension. 4. Chronic diastolic heart failure. 5. Chronic cigarette use. 6. History of angioedema with lisinopril. RECOMMENDATIONS: 1. Given elevated blood pressure despite current regimen, discontinue carvedilol and switch to Bystolic. 2. Serial cardiac enzymes. 3. Lexiscan myocardial perfusion study if cardiac enzymes negative. HISTORY: This 48-year-old female, with past history of severe hypertension, hypertensive cardiovascular disease, chronic diastolic heart failure, and previous negative evaluations for coronary disease in the past, was admitted to the emergency room for evaluation of chest discomfort and elevated blood pressure. She relates that she woke this morning with chest pressure/heaviness. She had some associated nausea and discomfort extended to her back and neck. There was some associated shortness of breath. Discomfort lasted several hours, from perhaps 8:00 in the morning to at least 11 a.m. She went to the emergency room and was noted to have significantly elevated blood pressure. She has been compliant with medications and also relates compliance with sodium restriction. Her chest symptoms have resolved. She relates that she pretty much has such chest symptoms on a daily basis, but not as intense as her symptoms today. Previous evaluations for coronary disease have been negative. She has history of previous coronary angiography perhaps 5 years ago in [place],, and last year had coronary CT angio which was negative for coronary disease. PAST MEDICAL HISTORY: 1. Hypertensive cardiovascular disease. 2. Severe hypertension. 3. Chronic diastolic heart failure. 4. COPD. PAST SURGICAL HISTORY: Includes previous section. ALLERGIES: She is intolerant of lisinopril due to angioedema. She also has tendency for peripheral swelling with amlodipine. MEDICATIONS PRIOR TO ADMISSION: As listed. SOCIAL HISTORY: She has history of previous cigarette use, but has discontinued this. She drinks alcohol socially. She denies illicit drugs. FAMILY HISTORY: Positive for hypertension. There is also family history of coronary disease. REVIEW OF SYSTEMS: Pulmonary: Noncontributory beyond History of Present Illness. Gastrointestinal: Noncontributory beyond History of Present Illness. Constitutional: Noncontributory beyond History of Present Illness. Remainder review of systems negative/noncontributory beyond History of Present Illness, with 14 total systems reviewed. PHYSICAL EXAMINATION: General: This is a pleasant, middle-aged -[place] female in no distress. Vital Signs: Blood pressure 200/85. Heart rate 59 and regular. Oxygen saturation 98% on room air. HEENT: Extraocular movements appear intact. Mucous membranes moist. Neck: Supple without jugular venous distention. There are no carotid bruits. Chest: Clear to auscultation bilaterally. Cardiac: Regular rate and rhythm with normal first and second heart sounds. There is a soft decrescendo diastolic murmur at the right upper sternal border, which extends pretty much throughout diastole. No gallop could be appreciated. Abdomen: Soft. Bowel sounds are normal. Extremities: Without edema. Neurologic: Reveals her to be alert and fully oriented. Speech is fluent. She moves all 4 extremities equally well. Skin: Warm and dry. Psychiatric: Reveals mood to be appropriate. EK lead EKG demonstrates normal sinus rhythm and possible ventricular pre-excitation. LABORATORY DATA: Includes white blood cell count of 5.86, hematocrit 41.0, hemoglobin 13.9, platelet count 224,000. Sodium 139, potassium 3.9, chloride 105, carbon dioxide 25, BUN 14, creatinine 1.1, glucose 87. Initial troponin less than 0.01. Followup troponin less than 0.01. Chest x-ray is reviewed and demonstrates no acute infiltrates. There is mild left ventricular prominence of the cardiac silhouette. cc: Savage Perez MD
[2019-04-21] MEDS: APRESOLINE PO SCH ×3 (02:00→20:09)
[2019-04-21 06:34] LABS: BASO# 0.03 X1000 (0.0-0.2); BASO% 0.5 % (0.0-0.8); EOS# 0.17 X1000 (0.0-0.7); HEMATOCRIT 39.4 % (37.0-47.0); HEMOGLOBIN 13.1 g/dL (12.0-16.0); IMM GRAN# 0.01 X1000 (0.0-0.04); IMM GRAN% 0.2 % (0.0-0.5); LYMPH# 2.34 X1000 (1.2-3.4); LYMPH% 41.9 % (20.5-51.1); MCH 30.5 PG (27-31); MCHC 33.2 g/dL (33-37); MCV 91.8 FL (81-99); MONO% 12.5 % (1.7-9.3); MPV 10.8 FL (7.4-10.4); NEUT# 2.34 X1000 (1.4-6.5); NEUT% 41.9 % (42.2-75.2); PLT 197 X1000 (130-400); RBC 4.29 XMIL (4.2-5.4); RDW 12.9 % (11.5-14.5); WBC 5.59 X1000 (4.8-10.8)
[2019-04-21 06:47] LABS: CHOLESTEROL 157 mg/dL (0-200); HDL 62 mg/dL (45-65); LDL 69 mg/dL; TRIGLYCERIDES 129 mg/dL (35-135); VLDL 26 mg/dL
[2019-04-21] MEDS: ASPIRIN PO SCH (08:49)
[2019-04-21] MEDS: LASIX PO SCH (08:49)
[2019-04-21] MEDS: ZANTAC PO SCH ×2 (08:49→20:09)
[2019-04-21] MEDS: BYSTOLIC PO SCH (08:50)
[2019-04-21] MEDS ORDERED: HYGROTON PO SCH (09:00)
[2019-04-21] MEDS ORDERED: LEXISCAN ONE (10:00)
--- NOTE | 2019-04-21 12:27 | PROGRESS NOTE ---
DATE: 04/21/2019 SUBJECTIVE: The patient has no major complaints. OBJECTIVE: Blood pressure is 170/79, heart rate of 59, respiratory rate is 16, temperature is 98.2, saturation 99% on room air. Cardiovascular: Regular rate and rhythm. Pulmonary: Bilateral breath sounds, clear to auscultation. GI: Soft, nontender, nondistended. Bowel sounds were positive. DIAGNOSTIC DATA: No data. IMPRESSION: 1. Chest pain. Going to come and see. Disposition pending Cardiology. We will continue to follow. 2. Hypertension. Still not completely controlled. She has been placed on Bystolic. She is on 2 different diuretics, which I am not a big fan of, and she is on a decent dose of Lasix. I think I am just going to add some Norvasc, and we will see how she does. DISPOSITION: Pending her clinical status and her stress test results. Anticipate discharge either later today or tomorrow. ALLERGIES: She is allergic to Norvasc which causes swelling. I am suspicious it probably causes peripheral edema, so we will titrate up on her hydralazine to 50 q.8. cc: Vu Lou MD
[2019-04-21 12:40] LABS: AGAP 11; BUN 12 mg/dL (8-22); CALCIUM 8.3 mg/dL (8.8-10.2); CHLORIDE 104 mmol/L (98-107); COSMO 275; CREATININE 0.9 mg/dL (0.5-0.9); ESTIMATED GFR > 60; GLUCOSE 99 mg/dL (70-104); POTASSIUM 3.8 mmol/L (3.5-5.1); SODIUM 138 mmol/L (136-145); TCO2 24 mmol/L (25-35)
--- NOTE | 2019-04-21 12:58 | GRADED EXERCISE REPORT ---
DATE: 04/21/2019 GXT STRESS TEST/EKG INTERPRETATION: INDICATION: Chest pain. ORDERING PHYSICIAN: Dr. Perez. DESCRIPTION OF PROCEDURE: The patient underwent Lexiscan. Her baseline EKG shows pretty significant LVH with a strain pattern. She also has some ST depression at baseline. Heart rate was 56 and initial blood pressure 168/87. She underwent Lexiscan. She did have some mild chest tightness during the testing. She had some ST elevations but to me, she did not clearly have any ST depressions in contiguous leads, but some of the ST elevations were more than 1 mm and she seemed like she had chest pain. She only had mild chest pain but she had some chest pain during it. The EKG had such significant LVH in IVSD, I do not think we can safely say she had ischemic changes but electrically equivocal. She had resolution of her pain but she did have diaphoresis during the episode. Myocardial perfusion will be reported separately. cc: Vu Lou MD
[2019-04-21] MEDS ORDERED: APRESOLINE PO SCH (13:00)
--- NOTE | 2019-04-21 13:45 | Diag Imaging Result Document ---
PROCEDURE NAME: MYOCARDIAL PERF SCAN, STR/REST - 04/21/2019 INDICATION: Chest pain. PROCEDURES PERFORMED: 1. Lexiscan stress (results dictated separately by primary team). 2. One-day stress/rest myocardial perfusion imaging. PROCEDURE IN DETAIL: Ms. Rush was brought to the nuclear laboratory and had a resting study with injection of 11.7 mCi of technetium-99m sestamibi with usual imaging protocol utilized. She subsequently was brought back and had a Lexiscan stress. At peak stress, was injected with 33.6 mCi of technetium-99m sestamibi with usual imaging protocol utilized. FINDINGS: 1. Lexiscan stress results dictated separately. 2. There is no clear evidence of abnormal extracardiac uptake. 3. TID ratio is 1.11. 4. Perfusion imaging demonstrates a moderate sized, mild intensity defect located in the apex, distal inferior lateral and mid inferior lateral. This defect is mixed with a more fixed component in the apical segments with some reversibility towards the more basal portions. There is a significant amount of gut uptake interfering on rest images, possibly resulting in the appearance of artificial reversibility. Clinical correlation is recommended. This is a very difficult study. 5. Normal ejection fraction of 56%. End-diastolic volume 125, end-systolic volume 55. Normal wall motion. cc: MD Savage Haley MD MTDD
--- NOTE | 2019-04-21 17:45 | EKG Report ---
Test Performed on : 04/21/2019 5:39:20 PM Test Reason : cad Blood Pressure : / mmHG Vent. Rate : 057 BPM Atrial Rate : 057 BPM P-R Int : 156 ms QRS Dur : 118 ms QT Int : 500 ms P-R-T Axes : 035 065 115 degrees QTc Int : 486 ms Sinus bradycardia. Left ventricular hypertrophy with QRS widening Septal infarct , age undetermined T wave abnormality, consider anterolateral ischemia Abnormal ECG When compared with ECG of 20-APR-2019 13:18, (Unconfirmed) [id number] is no longer present Confirmed by Fernando Leonardo MD ([id number]) on 04/24/2019 7:37:44 AM
[2019-04-21] MEDS ORDERED: HYGROTON PO ONE (18:48)
--- NOTE | 2019-04-21 19:44 | PROGRESS NOTE ---
DATE: 04/21/2019 SUBJECTIVE: Patient continues without further chest discomfort or shortness of breath. OBJECTIVE: Blood pressure 174/87 to 201/77. Heart rate 55-56 beats per minute, oxygen saturation 100% on room air. There is no significant jugular distention.Chest: Clear to auscultation bilaterally. Cardiac: Reveals a regular rate and rhythm without appreciable murmur or gallop. Extremities: Without edema. LABORATORY DATA: Includes a white blood cell count of 5.6, hematocrit 39.4, hemoglobin 13.1, platelet count 197,000. Sodium 138, potassium 3.8, chloride 104, carbon dioxide 24, BUN 12, creatinine 0.9. Glucose 99, initial troponin less than 0.01, Followup troponin less than 0.01. Total cholesterol 157, triglycerides 129, LDL cholesterol 69, the LDL cholesterol calculated 26, HDL cholesterol 62. Lexiscan myocardial perfusion study demonstrates mild reversibility in the distal inferolateral and mid inferolateral region left ventricle as well as the apex. Inducible myocardial ischemia in this region cannot be excluded. Left ventricular ejection fraction 56%. IMPRESSION: 1. Recent extended episode of chest discomfort associated with markedly elevated blood pressure. No evidence of myocardial insult by serial cardiac enzymes. 2. Hypertensive cardiovascular disease with left hypertrophy. 3. Severe hypertension. 4. Abnormal Lexiscan myocardial perfusion study. Inducible ischemia in the mid and distal inferolateral region left ventricle cannot be excluded. 5. Chronic diastolic heart failure. 6. Chronic cigarette use. 7. History of angioedema with lisinopril. RECOMMENDATIONS: 1. Given abnormal stress myocardial perfusion study and patient's clinical presentation, favor definitive evaluation with cardiac catheterization and selective coronary angiography. The rationale for this approach was discussed with the patient including potential hazards and she wished to proceed. However she is considering having procedure performed in [facility] and will consider further with her daughter and make a decision by morning. 2. Resume chlorthalidone. 3. Increase hydralazine given elevated blood pressure. cc: Savage Perez MD
[2019-04-22] MEDS: APRESOLINE PO SCH ×3 (02:41→18:41)
[2019-04-22 07:32] LABS: AGAP 12; BUN 13 mg/dL (8-22); CALCIUM 9.2 mg/dL (8.8-10.2); CHLORIDE 100 mmol/L (98-107); COSMO 268; CREATININE 0.9 mg/dL (0.5-0.9); ESTIMATED GFR > 60; GLUCOSE 100 mg/dL (70-104); POTASSIUM 3.2 mmol/L (3.5-5.1); SODIUM 134 mmol/L (136-145); TCO2 23 mmol/L (25-35)
[2019-04-22] MEDS ORDERED: HYGROTON PO SCH (09:00)
[2019-04-22] MEDS ORDERED: KLOR-CON PO ONE (09:40)
[2019-04-22] MEDS: BYSTOLIC PO SCH (10:20)
[2019-04-22] MEDS: ZANTAC PO SCH (10:20)
[2019-04-22] MEDS: ASPIRIN PO SCH (10:20)
[2019-04-22 10:44] LABS: INR 0.96; PROTIME 13.3 Seconds (11.0-16.0)
--- NOTE | 2019-04-22 11:56 | PROGRESS NOTE ---
DATE: 04/22/2019 SUBJECTIVE: The patient has no chest pains. OBJECTIVE: Blood pressure is 138/71, heart rate 56, respiratory rate 20, temperature 98.3 degrees, 99% on room air. Cardiovascular: Regular rate and rhythm. Pulmonary: Bilateral breath sounds diminished at the bases. GI: Soft, nontender, nondistended. Bowel sounds were positive. Blood pressure is much improved. Her coagulations are okay. PROBLEM LIST: 1. Chest pain but positive perfusion study. That test is abnormal. Dr. Perez is recommending cardiac catheterization. She was decided about doing [place] versus [place], and has agreed to do it in [place] and we will continue to monitor that. 2. Hypertension. We will continue her current medications and follow. DISPOSITION: Pending her clinical status. I am assuming if her test is negative, she may go home. She is actually a Dr. Solis patient. We will continue to follow and let him know if she is being transferred to the main campus for evaluation. cc: Vu Lou MD
[2019-04-22] MEDS ORDERED: HEPARIN 1000 UNITS/NS 2,000 UNIT/1,000 ML IV.SOLN ONE (13:07)
[2019-04-22] MEDS ORDERED: VERSED ONE (13:30)
[2019-04-22] MEDS ORDERED: CLAVE TWINSITE 32 IN 11959 ONE (13:30)
[2019-04-22] MEDS ORDERED: DILAUDID ONE (13:30)
[2019-04-22] MEDS ORDERED: ANESTHESIA PB SET 88 IN 5742 ONE (13:30)
[2019-04-22] MEDS ORDERED: NS 1,000 ML ONE (13:30)
--- NOTE | 2019-04-22 14:30 | CARDIAC CATH REPORT ---
PROCEDURE NAME: - INDICATION: Chest pain. Abnormal myocardial perfusion scan. PROCEDURES PERFORMED: 1. Left heart catheterization. 2. Selective coronary angiography. PROCEDURE IN DETAIL: Ms. Rush was brought to the catheterization laboratory in fasting state. Informed consent was obtained. Prepped in usual fashion. She was anesthetized over the right radial after Juliano's test proved adequate. A 5-Prydeinig sheath was placed via true Seldinger technique. Radial cocktail was administered. Catheters were introduced and hemodynamic measurements were made of the ascending and thoracic aorta. Coronary angiography was performed in multiple views using JL3.5 and JR4 diagnostic catheters. Left heart catheterization was performed using the JR4. At the conclusion of the procedure, sheaths and catheters were removed. TR band was inflated at 11 mL of air. Good capillary refill. Good hemostasis; 45 mL of IV contrast, 5-10 mL of blood loss. FINDINGS: 1. The left main originates from the left coronary cusp and appears normal. 2. Left anterior descending and circumflex vessels originate from the left main. They appear angiographically normal. They are somewhat tortuous. 3. Right coronary originates from the right coronary cusp. It appears tortuous, but angiographically normal. 4. Aortic blood pressure 147/65 with a mean of 101. Left ventricular pressure 136/1 with an LVEDP of 4. ASSESSMENT: Ms. Rush is a 48-year-old female with hypertensive heart disease, who presented with chest pain and had an abnormal myocardial perfusion scan. PLAN: She has angiographically normal coronaries and normal LVEDP. We will discuss case with the primary cardiology team and further recommendations to follow. cc: Joesph Trilpett MD
[2019-04-22 16:19] VITALS: BP 140/76
--- NOTE | 2019-04-23 01:23 | DISCHARGE SUMMARY ---
ADMISSION DATE: 04/20/2019 DISCHARGE DATE: 04/22/2019 PRIMARY CARE PHYSICIAN: Dr. Shady Solis. ADMISSION DIAGNOSES: 1. Chest pain. 2. Uncontrolled hypertension. 3. Acute kidney injury. DISCHARGE DIAGNOSES: 1. Chest pain with a positive perfusion study but negative left heart catheterization. 2. Uncontrolled hypertension. SUMMARY OF FINDINGS: This is a 48-year-old female who presented to the emergency room with chest pain that began around noon on the day of arrival, radiated to her left arm and left side of her neck and through to her back with some associated shortness of breath and nausea, vomiting. When she arrived to the emergency room, her blood pressure was noted to be 201/98. States she had been taking her prescriptions as prescribed. Her cardiac enzymes were negative x4 sets. We did a myocardial perfusion scan that showed no clear evidence of abnormal extracardiac uptake. She did have a moderate sized mildly intensity defect located in the apex and distal inferior lateral and mid inferior lateral, recommended a heart catheterization. She had a left heart catheterization done today at [facility] that was read as angiographically normal coronaries and normal LVEDP and it is felt that she can now safely be discharged home. DISCHARGE MEDICATIONS: Hydralazine 75 mg p.o. q.8 hours, Bystolic 10 mg p.o. daily, aspirin 81 mg p.o. daily, Coreg 25 mg p.o. q.12 hours, [place] 25 mg p.o. daily. FOLLOW-UP: She will need to follow up with her primary care physician in the next 1 to 2 weeks and call their office for an appointment. All discharge instructions have been reviewed with the patient and she verbalized understanding. TIME SPENT: This is a 33 minutes discharge. Dictated by YEIMI Gramajo for Vu Lou MD cc: YEIMI Gramajo MD
== END 2019-04-22 19:26 | disposition home or self-care (01) ==
LOC: P.MEDSURG 13:02 → P.ED 13:02 → SUATTDRO 13:03 → 3S 04-22 11:58
PROVIDERS: ATTEND Internal Medicine
CPT/HCPCS: 71020; 71046; 78452; 80048; 80053; 80061; 82550; 83735; 83880; 84484; 85025; 85610; 85730; 93005; 93010; 93458; 94761; A9270; A9500; J1170; J1644; J2250; J2405; J2785; J7030; Q9967

== ENCOUNTER 2019-11-10 17:41 | Observation (INO) ==
--- NOTE | 2019-11-10 17:50 | EKG Report ---
Test Performed on : 11/10/2019 5:38:40 PM Test Reason : cp Blood Pressure : / mmHG Vent. Rate : 076 BPM Atrial Rate : 076 BPM P-R Int : 144 ms QRS Dur : 118 ms QT Int : 424 ms P-R-T Axes : 067 038 094 degrees QTc Int : 477 ms Normal sinus rhythm. Possible Left atrial enlargement Left ventricular hypertrophy with QRS widening and repolarization abnormality Cannot rule out Septal infarct (cited on or before 21-APR-2019) Abnormal ECG When compared with ECG of 06-NOV-2019 21:03, (Unconfirmed) T wave inversion no longer evident in Inferior leads T wave amplitude has decreased in Anterior leads Unconfirmed Result
[2019-11-10 18:08] LABS: BASO# 0.03 X1000 (0.0-0.2); BASO% 0.3 % (0.0-0.8); EOS# 0.22 X1000 (0.0-0.7); EOS% 2.3 % (0.0-10.0); HEMATOCRIT 45.1 % (37.0-47.0); HEMOGLOBIN 14.7 g/dL (12.0-16.0); IMM GRAN# 0.03 X1000 (0.0-0.04); IMM GRAN% 0.3 % (0.0-0.5); LYMPH# 3.82 X1000 (1.2-3.4); LYMPH% 40.1 % (20.5-51.1); MCH 29.5 PG (27-31); MCHC 32.6 g/dL (33-37); MCV 90.6 FL (81-99); MONO% 12.6 % (1.7-9.3); MPV 10.3 FL (7.4-10.4); NEUT# 4.22 X1000 (1.4-6.5); NEUT% 44.4 % (42.2-75.2); PLT 268 X1000 (130-400); RBC 4.98 XMIL (4.2-5.4); RDW 13.3 % (11.5-14.5); WBC 9.52 X1000 (4.8-10.8)
[2019-11-10 18:09] LABS: INR 0.97; PROTIME 13.4 Seconds (11.0-16.0)
[2019-11-10 18:16] LABS: ALBUMIN 4.3 g/dL (3.5-5.0); CALCIUM 9.8 mg/dL (8.8-10.2); CREATININE 1.3 mg/dL (0.5-0.9); POTASSIUM 3.1 mmol/L (3.5-5.1); TOTAL BILIRUBIN 0.6 mg/dL (0.20-1.00); TOTAL PROTEIN 7.4 g/dL (6.3-8.3)
[2019-11-10] MEDS ORDERED: KLOR-CON PO ONE (18:57)
[2019-11-10] MEDS ORDERED: LASIX PO ONE (18:57)
[2019-11-10] MEDS ORDERED: LASIX IV ONE (19:10)
--- NOTE | 2019-11-10 19:11 | PROVIDER DOCUMENTATION ---
This chart was entered by Citlalli Walton Scribe, acting as scribe for Ap Shay MD. HPI-Chest Pain - General Chief Complaint: Chest Pain Stated Complaint: Chest Pain Time Seen by Provider: 11/10/19 18:04 Source: patient Allergies/Adverse Reactions: Patient Allergies Allergy/AdvReac Type Severity Reaction Status Date / Time amlodipine Allergy SWELLING Verified 09/28/19 10:31 lisinopril Allergy SWELLING Verified 09/28/19 10:31 peach Allergy SHORTNESS Verified 09/28/19 10:31 OF BREATH Home Medications: Home Medication List Medication Instructions Recorded Confirmed Last Taken Type Albuterol Sulfate [Proair Hfa] 2 puff PO BID PRN 10/28/18 11/10/19 04/19/19 09:00 History Carvedilol [Coreg] 25 mg PO Q12HR #60 tab 11/02/18 11/10/19 11/10/19 Rx Chlorthalidone [Hygroton] 25 mg PO DAILY #30 tab 11/02/18 11/10/19 11/10/19 Rx Ranitidine [Zantac] 150 mg PO BID #60 tab 11/02/18 09/28/19 04/20/19 09:00 Rx Aspirin EC 81 mg PO DAILY #30 tab 04/22/19 11/10/19 11/10/19 Rx Hydralazine [Apresoline] 75 mg PO Q8H #90 tab 04/22/19 11/10/19 11/10/19 Rx Nebivolol [Bystolic] 10 mg PO DAILY #30 tab 04/22/19 11/10/19 11/09/19 Rx Furosemide [Lasix] 20 mg PO DAILY #14 tab 09/28/19 11/10/19 11/09/19 Rx Potassium Chloride E.r. [Klor-Con] 10 meq PO DAILY #14 tab 09/28/19 11/10/19 11/10/19 Rx Levocetirizine Dihydrochloride 5 mg PO DAILY 11/10/19 11/10/19 11/10/19 History - History of Present Illness-CP Nature of Presenting Problem: Pt is a 49 yof who presents to the ED with a cc of chest pain that began at 5:30pm. Pt reports nausea, SOB, dizziness, sweating, and nausea but states that her symptoms are gone now. Pt reports that she was seen at [facility] [place] for similar symptoms w/ HBP. Pt reports hx of CHF and Enlarged heart. Pt denies any other complaints in the ED. Quality of Pain: reports: sharp Severity in ED: mild Onset/Duration: 1-3 hours ago Timing: gone now Context/Activities at Onset: reports: none Modifying Factors: improves with: nothing Associated Symptoms: reports: diaphoresis, dizziness, nausea, shortness of breath Nitro Today/Relief: no nitro taken today Aspirin Treatment Today: 81 mg x 3 Prior Chest Pain/Cardiac Workup: reports: other (CHF, Enlarged heart) Similar Symptoms Previously?: Yes Recently Seen Here or By Another Healthcare Provider: Yes Review of Systems - Adult - REVIEW OF SYSTEMS - ADULT Constitutional: reports: see HPI. denies: chills Eyes: reports: no symptoms reported Ears, Nose, Mouth & Throat: reports: no symptoms reported Cardiovascular: reports: see HPI, chest pain (gone now) Respiratory: reports: see HPI, shortness of breath (gone now) Gastrointestinal: reports: see HPI, nausea (gone now) Genitourinary: reports: no symptoms reported Musculoskeletal: reports: no symptoms reported Integumentary: reports: no symptoms reported Neurological: reports: see HPI, dizziness/vertigo (gone now) Psychiatric: reports: no symptoms reported Endocrine: reports: see HPI, other (sweating, gone now) Hematologic/Lymphatic: reports: no symptoms reported Allergic/Immunologic: reports: no symptoms reported All Other Systems: Reviewed and Negative Past History - Adult - PAST MEDICAL HISTORY-ADULT Review of Records: reports: Nursing Assessment Review, Medications Reviewed, Social history reviewed & non-contributory. Major Childhood Illnesses: reports: denies history Cardiovascular: reports: cardiac disease, CHF, HTN, hyperlipidemia, other (Enlarged heart) Respiratory: reports: denies history Gastrointestinal: reports: GERD Obstetrical/Gynecological: reports: denies history Genitourinary: reports: denies history Musculoskeletal: reports: denies history Neurological: reports: denies history Psychiatric: reports: denies history Endocrine/Immune: reports: denies history Other Conditions: reports: denies history - PRIOR SURGERIES/PROCEDURES Surgical/Procedure History: reports: - PRIOR HOSPITALIZATIONS Prior Hospitalizations: reports: none - IMMUNIZATION STATUS Childhood Immunizations: See Nurse Assessment Flu Vaccine: See Nurse Assessment - FAMILY HISTORY Family History: reviewed, not pertinent - SOCIAL HISTORY Smoking: non-smoker Substance Use: denies Living Situation: family Physical Exam-General - PHYSICAL EXAM-ADULT Initial Vital Signs Reviewed: No - CONSTITUTIONAL General Appearance: appears well, alert, no apparent distress. negative: mild distress - HEAD, EARS, NOSE, MOUTH & THROAT HENMT: normocephalic/atraumatic - RESPIRATORY Respiratory: chest non-tender, lungs clear, normal breath sounds, no respiratory distress. negative: crackles, rhonchi - CARDIOVASCULAR Cardiovascular: normal peripheral pulses, regular rate, rhythm, no edema, no gallop, no JVD, no murmur. negative: bradycardia, tachycardia, gallop/S3 - GASTROINTESTINAL (ABDOMEN) Abdominal Exam: normal bowel sounds, non tender, soft. negative: guarding, tenderness - MUSCULOSKELETAL Back Exam: normal inspection, no CVA tenderness, no vertebral tenderness Extremity: normal range of motion, non-tender, normal inspection, no pedal edema - SKIN Integumentary: normal color, normal turgor, warm/dry - NEUROLOGIC Neurologic: grossly normal - PSYCHIATRIC Psych/Mental Status: normal mood/affect, normal thought content, normal thought process, oriented x 3 - HEART Score HEART Score: History: Moderately Suspicious HEART Score: ECG: Non-Specific Repolarization Disturbance/LBBB/PM HEART Score: Age: 45-65 Years HEART Score: Risk Factors for Atherosclerotic Disease: 1 or 2 Risk Factors HEART Score: Troponin: < or = Normal Limit Total HEART Score:: 4 Progress - PLAN OF CARE/RESULTS Progress/Plan/Lab Results: Vital Signs - 8 hr 11/10/19 17:37 Temperature 97.9 F Pulse Rate 77 Respiratory Rate 20 Blood Pressure 168/103 O2 Sat by Pulse Oximetry 100 Laboratory Results - last 24 hr 11/10/19 11/10/19 11/10/19 17:45 17:45 17:45 WBC 9.52 RBC 4.98 Hgb 14.7 Hct 45.1 MCV 90.6 MCH 29.5 MCHC 32.6 L RDW Std Deviation 13.3 Plt Count 268 MPV 10.3 Immature Gran % (Auto) 0.3 Neut % (Auto) 44.4 Lymph % (Auto) 40.1 [place] % (Auto) 12.6 H Eos % (Auto) 2.3 Baso % (Auto) 0.3 Immature Gran # (Auto) 0.03 Neut # (Auto) 4.22 Lymph # (Auto) 3.82 H [place] # (Auto) 1.20 H Eos # (Auto) 0.22 Baso # (Auto) 0.03 PT INR PTT (Actin FS) Sodium 133 L Potassium 3.1 L Chloride 97 L Carbon Dioxide 21 L Anion Gap 15 BUN 16 Creatinine 1.3 H Estimated GFR/1.73 m2 43 BUN/Creatinine Ratio 12 Glucose 120 H Calculated Osmolality 269 Calcium 9.8 Total Bilirubin 0.60 AST 13 ALT 10 Alkaline Phosphatase 90 Creatine Kinase 78 Troponin T High Sens Fvw-T-Bfgwocfcesc Pept 445 H Total Protein 7.4 Albumin 4.3 Globulin 3.0 Albumin/Globulin Ratio 1.0 11/10/19 11/10/19 17:45 17:45 WBC RBC Hgb Hct MCV MCH MCHC RDW Std Deviation Plt Count MPV Immature Gran % (Auto) Neut % (Auto) Lymph % (Auto) [place] % (Auto) Eos % (Auto) Baso % (Auto) Immature Gran # (Auto) Neut # (Auto) Lymph # (Auto) [place] # (Auto) Eos # (Auto) Baso # (Auto) PT 13.4 INR 0.97 PTT (Actin FS) 28.0 Sodium Potassium Chloride Carbon Dioxide Anion Gap BUN Creatinine Estimated GFR/1.73 m2 BUN/Creatinine Ratio Glucose Calculated Osmolality Calcium Total Bilirubin AST ALT Alkaline Phosphatase Creatine Kinase Troponin T High Sens 15 Ciq-E-Moxvuisgvok Pept Total Protein Albumin Globulin Albumin/Globulin Ratio Orders Category Date Time Status Cardiac Monitoring DIRECTED Care 11/10/19 17:47 Active Oxygen Therapy- ED Nursing DIRECTED Care 11/10/19 17:47 Active Saline Loc NOW Care 11/10/19 17:47 Active CHEST-2 VIEWS [RAD] Stat Exams 11/10/19 17:47 Taken CBC WITH ELECTRONIC DIFF [HEME] Stat Lab 11/10/19 17:45 Completed CK PROFILE [SP CHEM] Stat Lab 11/10/19 17:45 Completed COMPREHENSIVE METABOLIC PANEL [CHEM] Stat Lab 11/10/19 17:45 Completed PRO B-NATRIURETIC PEPTIDE Stat Lab 11/10/19 17:45 Completed PROTIME WITH INR [COAG] Stat Lab 11/10/19 17:45 Completed PTT [COAG] Stat Lab 11/10/19 17:45 Completed TROPONIN T HIGH SENSITIVITY Stat Lab 11/10/19 17:45 Completed CP/SOB/Palp >45 yrs of Age Stat Oth 11/10/19 17:47 Ordered EKG [EKG] Stat Ther 11/10/19 17:47 Draft Result Diagrams: 11/10/19 17:45 11/10/19 17:45 - EKG 1 Time of EKG reading by physician:: 17:43 EKG Read and Signed by:: Ap Shay EKG Interpretation (*Must complete 3 of following elements*): Abnormal Rate: 76 Rhythm: nsr Tamms: normal QRS: LVH ND Interval: normal ST Wave: non-specific ST changes (NSR, CLEARLY DISPLAYS LVH) - XRAY 1 XRAY Study: Chest Impression: Abnormal (CARDIOMEGALLY, MILD PUL VASC REDISTRIBUTION) - CONSULTS/PCP/HOSPITALIST Notification #1 *Consult/PCP/Hospitalist*: DR NAJERA Time Discussed: 19:06 Consult Disposition: Admit Departure - Departure Date of Disposition Decision: 11/10/19 Time of Disposition Decision: 19:09 DIAGNOSIS: Hypokalemia Chest pain Qualifiers: Chest pain type: unspecified Qualified Code(s): R07.9 - Chest pain, unspecified Disposition: ADMITTED INPATIENT 09 Certified Medical Emergency: Emergent Condition: Stable Referrals and Follow-Ups: Willard Tuttle MD [Primary Care Provider] - - Critical Care Note This patient required my direct & personal management of CC.: No Attestation - Physician/ SABRA Attestation Patient care was provided by Advanced Practice Provider:: No The physician spent face to face time with patient:: Yes Advanced Practice Provider documentation review:: Supervising physician onsite and consulted in the evaluation and care of this patient. The physician did have a face to face encounter with the patient. This chart was documented by the indicated scribe, (Citlalli Walton Scribe) and accurately reflects the services I performed and decisions made by me, Ap Shay MD, as attested by the provider's signature.
--- NOTE | 2019-11-10 19:16 | Diag Imaging Result Doc PS360 ---
EXAM: CHEST-2 VIEWS HISTORY: cp TECHNIQUE: Two views COMPARISON: 11/06/2019 FINDINGS: The lungs are well expanded. The heart is mildly prominent. The vessels are not distended. There are no infiltrates. No pleural effusions. IMPRESSION: Stable mild cardiomegaly. Electronically signed by Vitor Mo 11/10/2019 7:13 PM
[2019-11-10] MEDS ORDERED: ZOFRAN IV ONE (20:23)
[2019-11-10] MEDS: MORPHINE IV PRN (22:14)
[2019-11-11] MEDS: MORPHINE IV PRN (01:19)
[2019-11-11] MEDS: ZOFRAN IV PRN ×2 (01:20→12:00)
[2019-11-11] MEDS ORDERED: FLU VACCINE IM ONE (12:00)
[2019-11-11 17:10] VITALS: BP 164/89
--- NOTE | 2019-11-11 20:36 | HISTORY AND PHYSICAL ---
CHIEF COMPLAINT: Chest pain. HISTORY OF PRESENT ILLNESS: This is a 49-year-old female who presented to the emergency room at [facility] [place] complaining of chest pain that began at 5:30 p.m. She reports accompanying nausea, shortness of breath, dizzy, and sweating at the time of the chest pain, but on arrival to the emergency room, all symptoms had resolved. Of note, she was evaluated in the emergency room on 11/06/2019 for the same and discharged with atypical chest pain. In reviewing her records, she reports a history of chronic chest pain for which she has had multiple studies, the last being April 2019. She had a left heart catheterization with coronary angiography, which revealed angiographically normal coronaries and normal left ventricular end-diastolic pressure. PAST MEDICAL HISTORY: 1. Hypertensive cardiovascular disease with chronic diastolic failure. 2. Bronchial asthma. PAST SURGICAL HISTORY: . SOCIAL HISTORY: She has history of cigarette use. She denies any illicit drugs. She does drink alcohol socially. ALLERGIES: Lisinopril, due to angioedema, and peripheral swelling with amlodipine. FAMILY HISTORY: Positive for coronary artery disease and hypertension. HOME MEDICATIONS: A list will be obtained by the nursing staff and once verified, will review and restart as appropriate. REVIEW OF SYSTEMS: Discussed with patient with pertinent positives stated in the HPI. She denied any syncope or dizziness, a productive cough, any fevers or chills, night sweats, any vomiting, diarrhea, constipation, any black or bloody vomitus or stools, hematuria, dysuria, frequency, or urgency. PHYSICAL EXAMINATION: GENERAL: This is a 49-year-old female who is lying on the bed in no distress. VITAL SIGNS: Blood pressure is 151/80 with a heart rate of 66, respirations are 20, temperature is 98.3 degrees, with room air saturations 100%. HEENT: Head is normocephalic, atraumatic. Mucous membranes are moist. NECK: Supple with trachea midline. CARDIOVASCULAR: Regular rate and rhythm. S1 and S2 appreciated. She noted a right upper sternal border diastolic murmur. Calves are nontender bilateral with peripheral pulses palpable x4 extremities. PULMONARY: Breath sounds are clear. No increased work of breathing noted. GASTROINTESTINAL: Abdomen is soft, nontender, nondistended, with bowel sounds in all 4 quadrants. NEUROLOGIC: She is alert and oriented x3. SKIN: Warm and dry. LABS: WBC is 9.5 with hemoglobin 14.7, hematocrit 45.1, and platelets 268,000. Sodium 133, potassium 3.1, BUN 16, creatinine 1.3 with a glucose of 120. Troponin is 15, 23, 19, and 19. Chest x-ray reveals stable cardiomegaly. There are no infiltrates. ASSESSMENT: 1. Chest pain. The patient's pain resolved before arrival to the emergency room. It has not reappeared. She will continue to monitor on telemetry. 2. Hypokalemia. We will were replete as appropriate and trend her labs. 3. Diastolic heart failure. Aware. 4. Hypertensive cardiovascular disease. 5. Hypertension. 6. Left ventricular hypertrophy. PLAN: The patient has been admitted to the medical-surgical floor at [place] [facility] and placed on telemetry, which will continue. Once home medications are identified, we will restart as appropriate. We will continue with inputs and outputs and daily weights. Plan was discussed with Dr. Jacob. Further treatments pending hospital course. Dictated by YEIMI Walker for Jean Jacob MD cc: YEIMI Walker MD
--- NOTE | 2019-11-11 22:10 | HISTORY AND PHYSICAL ---
CHIEF COMPLAINT: Chest pain. Patient is a 49-year-old female who presented to the emergency department with chest pain and radiation. Notes that she was out shopping when symptoms hit. They became severe. Therefore, she presented to the hospital. PLAN: We are going to admit her to the hospital. Continue to rule out ND. Replace her potassium. Further orders as needed. cc: Jean Jacob MD
--- NOTE | 2019-11-12 18:31 | DISCHARGE SUMMARY ---
ADMISSION DATE: 11/10/2019 DISCHARGE DATE: 11/11/2019 DISCHARGE DIAGNOSES: 1. Chest pain, resolved. 2. Hypertension. 3. Reflux. 4. Hypokalemia. CONSULTATIONS: None. PROCEDURES: None. BRIEF HOSPITAL COURSE: The patient is a 49-year-old female who presented to the hospital secondary to chest pain and nausea. She had a sweating episode. Thankfully shortly after getting admitted, all of her symptoms have resolved. Currently, she is awake, alert. She is in no distress. Notes that she is feeling much better and is asking to go home. DISPOSITION: The patient will be discharged home. She has recently had a stress test per the patient that was normal within the last year. Therefore, we will discharge her home. She will follow up outpatient with Cardiology. No changes were made on diet, activity, or medications. cc: Jean Jacob MD
== END 2019-11-11 18:00 | disposition home or self-care (01) ==
LOC: SUPCPDRO → P.MEDSURG 17:41 → P.ED 17:41
PROVIDERS: ATTEND Family Medicine